=== PATIENT | female | born 1975 | race Caucasian/White ===

== ENCOUNTER 2017-02-22 23:47 | Emergency (ER) | payer OTHER ==
--- NOTE | ~2017-02-22 | CR141 ---
[facility] A Service of [facility] & [facility] RADIOLOGY TEXT RESULTS PATIENT: BRANDON TRENT LOCATION: [facility] : 73 UNIT #: [id number] AGE: [address]: Layla Zhao APRN SEX: F ORDER DR: [id number] [facility] [address] [facility] [place], [place] [address] [id number] E MR#: [id number] Acc #: [id number] NAME: BRANDON TRENT : 1975 SEX: F STUDY DATE/TIME: 02/22/2017 23:49 UNIT: [facility] ROOM: STUDY DESCRIPTION: CR Hand Min 3 Views Lt Attending Physician: Layla Zhao A.P.R.N. Ordering Physician: Ed Doctor [id number] [facility] Primary Care Physician: Primary Care Physician No MEDICAL IMAGING REPORT This report is preliminary unless electronic signature is present EXAM Left hand 02/22/2017 INDICATIONS 41-year-old female who fell tonight has pain in the wrist and first digit. TECHNIQUE 3 views. No comparisons. FINDINGS Examination is negative. No acute fracture. Soft tissues unremarkable. IMPRESSION Negative Dictated by... Giovanni Correa M.D. THIS IS AN ELECTRONICALLY VERIFIED REPORT Giovanni Correa M.D. at 02/23/2017 9:53 PM Luz TD: 02/23/2017 07:17 JOB #: [id number] MEDICAL IMAGING REPORT Page 1 of 1 COPY
--- NOTE | ~2017-02-22 | CR281 ---
[facility] A Service of [facility] RADIOLOGY TEXT RESULTS PATIENT: BRANDON TRENT LOCATION: [facility] : 73 UNIT #: [id number] AGE: [address]: Layla Zhao APRN SEX: F ORDER DR: [id number] [place], [place] [address] [id number] E MR#: [id number] Acc #: [id number] NAME: BRANDON TRENT : 1975 SEX: F STUDY DATE/TIME: 02/22/2017 23:52 UNIT: [place] ROOM: STUDY DESCRIPTION: CR Wrist Min 3 View Lt Attending Physician: Layla Zhao A.P.R.N. Ordering Physician: Ed Doctor [id number] [facility] Primary Care Physician: Primary Care Physician No MEDICAL IMAGING REPORT This report is preliminary unless electronic signature is present EXAM Left wrist 02/22/2017 INDICATION Fell tonight. Pain in the first digit and generalized wrist pain after the fall. TECHNIQUE 3 views left wrist. COMPARISON None. FINDINGS The examination is negative. No acute fracture. Alignment preserved. No retained opaque foreign body. IMPRESSION Negative. Dictated by... Giovanni Correa M.D. THIS IS AN ELECTRONICALLY VERIFIED REPORT Giovanni Correa M.D. at 02/23/2017 9:53 PM JEANNETTE/[email or web address] TD: 02/23/2017 07:21 JOB #: [id number] MEDICAL IMAGING REPORT [facility] A Service of [facility] RADIOLOGY TEXT RESULTS PATIENT: BRANDON TRENT LOCATION: [facility] : 73 UNIT #: [id number] AGE: [address]: Layla Zhao APRN SEX: F ORDER DR: Page 1 of 1 COPY
== END 2017-02-23 01:00 | disposition home or self-care (01) ==
LOC: CFTX 23:47
DX: S63.502A Unspecified sprain of left wrist, initial encounter (principal); W18.30XA Fall on same level, unspecified, initial encounter
CPT/HCPCS: 29125; 73110; 73130; 99283

== ENCOUNTER 2017-03-03 23:59 | Emergency (ER) | payer OTHER ==
--- NOTE | ~2017-03-03 | CT52 ---
[facility] A Service of [facility] RADIOLOGY TEXT RESULTS PATIENT: BRANDON TRENT LOCATION: [facility] : 73 UNIT #: [id number] AGE: [address]: Luigi Shannon MD SEX: F ORDER DR: [id number] [address] [address] [id number] E MR#: [id number] Acc #: [id number] NAME: BRANDON TRENT : 1975 SEX: F STUDY DATE/TIME: 03/04/2017 0:40 UNIT: [facility] ROOM: STUDY DESCRIPTION: CT Cervical Spine Wo Cont Attending Physician: Luigi Shannon M.D. Ordering Physician: Luigi Shannon M.D. Primary Care Physician: Primary Care Physician No MEDICAL IMAGING REPORT This report is preliminary unless electronic signature is present EXAM CT cervical spine without contrast INDICATION Neck pain after a fall 1 week ago. PROCEDURE Unenhanced CT of the cervical spine. This CT exam was performed with one or more of the following radiation dose reduction techniques: automatic exposure control, adjustment of mA and/or kV according to patient size, and iterative reconstruction. COMPARISON None. FINDINGS The cervical bodies have normal height. Alignment overall is maintained. The craniocervical junction and the dens are intact. No fracture. No critical central canal narrowing. IMPRESSION No acute findings. No fracture. Dictated by... Edi Gupta M.D. THIS IS AN ELECTRONICALLY VERIFIED REPORT Edi Gupta M.D. at 03/07/2017 7:29 AM EED/rakan [facility] A Service [facility] RADIOLOGY TEXT RESULTS PATIENT: BRANDON TRENT LOCATION: [facility] : 73 UNIT #: [id number] AGE: [address]: Luigi Shannon MD SEX: F ORDER DR: TD: 03/04/2017 04:39 JOB #: [id number] MEDICAL IMAGING REPORT Page 1 of 1 COPY
== END 2017-03-04 02:05 | disposition home or self-care (01) ==
LOC: CED 23:59
DX: M54.12 Radiculopathy, cervical region (principal)
CPT/HCPCS: 72125; 99284